=== PATIENT | female | born 1990 | race Two or more races ===

== ENCOUNTER 2024-11-13 08:18 | Emergency (ER) | payer OTHER ==
[~2024-11-13] VITALS: Ht 160 cm; Wt 83.9 kg
[2024-11-13] MEDS ORDERED: PRENATABS FA T1 EACH PO (08:30)
[2024-11-13] MEDS ORDERED: CHOLINE500 M1 PO (08:31)
[2024-11-13 09:44] LABS: BASO % 0.3 % (0.1-1.2); EOS # 0.09 (0.04-0.54); EOS % 0.8 % (0.7-7.0); HEMATOCRIT 39.6 % (34.1-44.9); HEMOGLOBIN 13.2 g/dL (11.2-15.7); LYMPH # 2.67 (1.18-3.74); LYMPH % 24.4 % (19.3-53.1); MEAN CORPUSCULAR HEMOGLOBIN 28.7 pg (25.6-32.2); MONO % 7.3 % (4.7-12.5); NEUT # 7.22 (1.56-6.13); PLATELET COUNT 305 K/uL (163-369); RED CELL DISTRIBUTION WIDTH 13.6 % (11.6-14.4)
[2024-11-13 10:52] LABS: CALCIUM 8.7 mg/dL (8.5-10.1); CREATININE SERUM 0.68 mg/dL (0.55-1.02); GFR 99.65; POTASSIUM 4.25 mEq/L (3.5-5.1)
== END 2024-11-13 11:50 | disposition home or self-care (01) ==
LOC: ER 09:32
PROVIDERS: Emergency Medicine
DX: O20.8 Other hemorrhage in early pregnancy (principal); Z88.0 Allergy status to penicillin; Z88.6 Allergy status to analgesic agent; Z3A.01 Less than 8 weeks gestation of pregnancy

== ENCOUNTER 2024-12-05 09:01 | Emergency (ER) | payer OTHER ==
[~2024-12-05] VITALS: Ht 160 cm; Wt 83.0 kg
[~2024-12-05 09:01] MED LIST: CHOLINE500 M1 PO; PRENATABS FA T1 EACH PO
[2024-12-05] MEDS ORDERED: ONDANSETRON HCL 2 MG/ML VIAL IV STA (09:39)
[2024-12-05] MEDS ORDERED: 0.9 % SODIUM CHLORIDE 1,000 ML IV STA (09:39)
[2024-12-05] MEDS ORDERED: METOCLOPRAMIDE HCL 10 MG in DEXTROSE 5 % IN WATER 50 ML IV ONE (09:45)
[2024-12-05 10:27] LABS: URINE APPEARANCE Clear; URINE BILIRRUBIN Negative (NEGATIVE); URINE BLOOD Large; URINE COLOR Dark Yellow; URINE GLUCOSE Negative (NEGATIVE); URINE LEUKOCYTE Small; URINE NITRATE Negative; URINE PROTEIN 30 (NEGATIVE); URINE UROBILINOGEN 1.0 E.U./dl
[2024-12-05 10:28] LABS: BASO % 0.3 % (0.1-1.2); EOS # 0.15 (0.04-0.54); EOS % 1.2 % (0.7-7.0); LYMPH # 3.07 (1.18-3.74); LYMPH % 24.2 % (19.3-53.1); MEAN PLATELET VOLUME 10.30 fl (9.4-12.4); MONO # 0.58 (0.24-0.82); MONO % 4.6 % (4.7-12.5); NEUT # 8.76 (1.56-6.13); NEUT % 69.1 % (34.0-71.1); RED CELL DISTRIBUTION WIDTH 13.6 % (11.6-14.4); URINE BACTERIA 1718.3 uL (0.0-1933); URINE EPITHELIAL CELLS 25.8 uL (0.0-38.8); URINE RBC 338.3 uL (0.0-20.8); URINE WBC 40.1 uL (0.0-23.2)
[2024-12-05 10:52] LABS: BUN CREA RATIO 11.0 (7.0-25.0); CREATININE SERUM 0.75 mg/dL (0.55-1.02); GFR 88.99; GLUCOSE FASTING 112.0 mg/dL (65-100); OSMOLALITY SERUM 278.0 MOSM/KG (275-295)
[2024-12-05 11:27] LABS: URINE CAST 0.87 uL (0.0-1.40); URINE KETONE 40 (NEGATIVE); URINE MUCUS HEAVY
== END 2024-12-05 13:16 | disposition home or self-care (01) ==
LOC: ER 09:01
PROVIDERS: Emergency Medicine
DX: Z33.1 Pregnant state, incidental (principal); Z3A.12 12 weeks gestation of pregnancy; R11.10 Vomiting, unspecified; Z88.0 Allergy status to penicillin; Z88.6 Allergy status to analgesic agent